=== PATIENT | male | born 1955 | race Caucasian/White ===

== ENCOUNTER 2023-08-29 14:03 | Outpatient (REF) | payer OTHER, SELFPAY | END 2023-08-29 14:04 | disposition home or self-care (01) | LOC: HO.BBR 14:03 | PROVIDERS: PCP Internal Medicine; Visit Provider Internal Medicine Gastroenterology | DX: Z13.89 Encounter for screening for other disorder (principal) ==

== ENCOUNTER 2023-10-30 15:23 | Outpatient (REF) | payer OTHER, SELFPAY | END 2023-10-30 15:24 | disposition home or self-care (01) | LOC: HO.BBR 15:23 | PROVIDERS: PCP Internal Medicine; Visit Provider Internal Medicine Gastroenterology | DX: Z13.89 Encounter for screening for other disorder (principal) ==

== ENCOUNTER 2023-12-25 15:21 | Outpatient (REF) | payer OTHER, SELFPAY | END 2023-12-25 15:22 | disposition home or self-care (01) | LOC: HO.BBR 15:21 | PROVIDERS: PCP Internal Medicine; Visit Provider Internal Medicine Gastroenterology | DX: Z13.89 Encounter for screening for other disorder (principal) ==

== ENCOUNTER 2024-02-19 15:36 | Outpatient (REF) | payer OTHER, SELFPAY | END 2024-02-19 15:37 | disposition home or self-care (01) | LOC: HO.BBR 15:36 | PROVIDERS: PCP Internal Medicine; Visit Provider Internal Medicine Gastroenterology | DX: Z13.89 Encounter for screening for other disorder (principal) ==

== ENCOUNTER 2024-04-15 13:13 | Outpatient (REF) | payer OTHER, SELFPAY | END 2024-04-15 13:14 | disposition home or self-care (01) | LOC: HO.BBR 13:13 | PROVIDERS: PCP Internal Medicine; Visit Provider Internal Medicine Gastroenterology | DX: Z13.89 Encounter for screening for other disorder (principal) ==

== ENCOUNTER 2024-07-02 15:50 | Outpatient (REF) | payer OTHER, SELFPAY | END 2024-07-02 15:51 | disposition home or self-care (01) | LOC: HO.BBR 15:50 | PROVIDERS: Visit Provider Internal Medicine | DX: Z13.89 Encounter for screening for other disorder (principal) ==

== ENCOUNTER 2024-08-27 15:47 | Outpatient (REF) | payer OTHER, SELFPAY | END 2024-08-27 15:48 | disposition home or self-care (01) | LOC: HO.BBR 15:47 | PROVIDERS: PCP Internal Medicine; Visit Provider Internal Medicine Gastroenterology | DX: Z13.89 Encounter for screening for other disorder (principal) ==

== ENCOUNTER 2024-10-26 15:39 | Outpatient (REF) | payer OTHER, SELFPAY | END 2024-10-26 15:40 | disposition home or self-care (01) | LOC: HO.BBR 15:39 | PROVIDERS: PCP Internal Medicine; Visit Provider Internal Medicine Gastroenterology | DX: Z13.89 Encounter for screening for other disorder (principal) ==

== ENCOUNTER 2024-12-21 15:33 | Outpatient (REF) | payer OTHER, SELFPAY ==
--- OUTSIDE RECORDS SUMMARY | 2024-12-21 18:24 | XMS_ITS | Clinical Summary ---
Author Organization [facility] Address [address] [place] [address] Care Team Providers Care Salesperson Handbags Name Role Phone García Martines MD Primary Care Provider [phone] Allergies No known active allergies Medications No known medications Active Problems Problem Noted Date Diagnosed Date IPMN (intraductal papillary mucinous neoplasm) 0 04/13/2019 Social History Tobacco Use Types Packs/Day Years Used Date Smoking Tobacco: Never Smokeless Tobacco: Never Alcohol Use Standard Drinks/Week Comments No 0 (1 standard drink = 0.6 oz pur e alcohol) Sex and Gender Information Value Date Recorded Sex Assigned at Not on file Gender Identity Not on file Sexual Orientation Not on file Last Filed Vital Signs Vital Sign Reading Time Taken Comments Blood Pressure 154/76 04/13/2019 10:06 AM EDT Pulse 78 04/13/2019 10:06 AM EDT Temperature - - Respiratory Rate - - Oxygen Saturation - - Inhaled Oxygen Concentration - - Weight 87.5 kg (193 lb) 04/13/2019 10:06 AM EDT Height 172.7 cm (5' 8 ) 04/13/2019 10:06 AM EDT Body Mass Index 29.35 04/13/2019 10:06 AM EDT Plan of Treatment Health Maintenance Due Date Last Done Comments Hepatitis C Screening 1955 COVID-19 Vaccine (#1) 01/20/1958 Pneumococcal Vaccine (1 of 2 - PCV) 1963 Depression Screening 1969 Preventative Health Evaluation 1975 DTap / Tdap / Td (1 - Tdap) 1976 Colon Cancer Screening (Colonoscopy) 2002 Shingrix-Zoster Vaccine (1 of 2) 2007 Fall Risk Assessment 2022 Influenza Vaccine (#1) 2024 RSV Adult > 60+ Yrs or Pregn ant (1 - 1-dose 75+ series) 2032 Hepatitis B Vaccines Aged Out No long er eligible based on patient's age to complete this topic RSV Ped < 20 months Aged Out No longe r eligible based on patient's age to complete this topic Care Teams Salesperson Handbags Relationship Specialty Start Date End Date García Martines MD [address] [facility] [address] [place] [address] PCP - General Block Sealer 04/08/19
== END 2024-12-21 15:34 | disposition home or self-care (01) ==
LOC: HO.BBR 15:33
PROVIDERS: PCP Internal Medicine; Visit Provider Internal Medicine Gastroenterology
DX: Z13.89 Encounter for screening for other disorder (principal)

== ENCOUNTER 2025-02-15 15:21 | Outpatient (REF) | payer OTHER, SELFPAY ==
--- OUTSIDE RECORDS SUMMARY | 2025-02-15 18:07 | XMS_ITS | Clinical Summary ---
Author Organization [facility] Address [address] [place] [address] Care Team Providers Care Plastics Repairer Name Role Phone García Martines MD Primary Care Provider [phone] Allergies No known active allergies Medications No [...] age to complete this topic Care Teams Plastics Repairer Relationship Specialty Start Date End Date García Martines MD [address] [facility] [address] [place] [address] PCP - General Cruise Director 04/08/19
== END 2025-02-15 15:22 | disposition home or self-care (01) ==
LOC: HO.BBR 15:21
PROVIDERS: PCP Internal Medicine; Visit Provider Internal Medicine Gastroenterology
DX: Z13.89 Encounter for screening for other disorder (principal)

== ENCOUNTER 2025-04-12 15:18 | Outpatient (REF) | payer OTHER, SELFPAY ==
--- OUTSIDE RECORDS SUMMARY | 2025-04-12 16:53 | XMS_ITS | Clinical Summary ---
Author Organization [facility] Address [address] [place] [address] Care Team Providers Care Drum Plater Name Role Phone García Martines MD Primary Care Provider [phone] Allergies No known active allergies Medications No [...] 2007 Fall Risk Assessment 2022 Influenza Vaccine (Season Ended) 2025 RSV Adult > 60+ Yrs or Pregn ant (1 - 1-dose 75+ series) 2032 Hepatitis B Vaccines Aged Out No long er eligible based on patient's age to complete this topic RSV Ped < 20 months Aged Out No longe r eligible based on patient's age to complete this topic Care Teams Drum Plater Relationship Specialty Start Date End Date García Martines MD [address] [facility] [address] [place] [address] PCP - General Waterworks Supervisor 04/08/19
== END 2025-04-12 15:19 | disposition home or self-care (01) ==
LOC: HO.BBR 15:18
PROVIDERS: PCP Internal Medicine; Visit Provider Internal Medicine Gastroenterology
DX: Z13.89 Encounter for screening for other disorder (principal)

== ENCOUNTER 2025-06-07 15:25 | Outpatient (REF) | payer OTHER, SELFPAY ==
--- OUTSIDE RECORDS SUMMARY | 2025-06-07 15:58 | XMS_ITS | Encounter Summary ---
Author Organization [facility] Address [address] [place] [address] Phone Care Team Providers Care Osteopathic Medicine Teacher Name Role Phone García Martines MD Primary Care Provider [phone] García Martines MD Unavailable [phone] India Velasquez RN Unavailable [email or web address] Mariana Moffett RN Unavailable [phone] Linda Aguero RN Unavailable Nely Avila MD Unavailable [phone] Reason for Referral * MRI/CAT Scan - New Request Specialty Diagnoses / Procedures Referred By Contac t Referred To Contact Radiology Diagnoses Familial hemochromatosis Hepatic cirrhosis, unspecified hepatic cirrhosis type, unspecified whether ascites present IPMN (intraductal papillary mucinous neoplasm) Procedures MRI Cholangiopancreatography (MRCP) García Roque MD [address] [place] [address] Phone: tel: fax: mailto:[email or web address] Referral ID Status Reason Start Date Expiration Date V isits Requested Visits Authorized [id number] New Request 05/12/2025 1 1 Encounter Details Date Type Department Care Team (Latest Contact Info) Description 05/12/2025 Transcribe Orders Virtual Department [address] [place] [address] García Roque MD [address] [address] [email or web address] Familial hemochromatosis (Primary Dx); Hepatic cirrhosis, unspecified hepatic cirrhosis type, unspecified whether ascites present; IPMN (intraductal papillary mucinous neoplasm) Social History Tobacco Use Types Packs/Day Years Used Date Smoking Tobacco: Never Smokeless Tobacco: Never Alcohol Use Standard Drinks/Week Comments Not Currently 0 (1 standard drink = 0.6 oz pur e alcohol) Education Answer Date Recorded Are you interested in more education? Not on aide e 02/15/2023 Are you concerned about learning? Not on file 02/15/2023 No 02/15/2023 No 02/15/2023 Digital Access Answer Date Recorded No 03/19/2023 No 03/19/2023 Reliable internet access at home? Not on file 03/19/2023 Device with a working camera? 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 file Not on f ile documented as of this encounter Plan of Treatment Upcoming Encounters Date Type Department Care Team (Late st Contact Info) Description 07/20/2025 8:10 AM EDT Blood Draw Laboratory Services, [facility] [address] [facility]nd [place] [address] Nely Avila MD [address] [place] [address] [email or web address] 07/20/2025 9:00 AM EDT Office [facility], [facility] [place] [address] [facility] [facility]th [place] [address] Jud Figueroa NP [address] [place] [address] [email or web address] 10/12/2025 8:10 AM EST Blood Draw Laboratory Services, [address], 2nd [place] [address] Nely Avila MD [address] [place] [address] [email or web address] 10/12/2025 9:00 AM EST Office Visit [facility], [facility] [address] [facility], [address]th [place] [address] Nely Avila MD [address] [place] [address] [email or web address] Scheduled Orders Name Type Priority Associated Diagnoses Order Schedule MRI Cholangiopancreatography (MRCP) Imaging Routine Familial hemochromatosis Hepatic cirrhosis, unspecified hepatic cirrhosis type, unspecified whether ascites present IPMN (intraductal papillary mucinous neoplasm) Expected: 05/12/2026, Expires: 11/12/2026 documented as of this encounter Visit Diagnoses Diagnosis Familial hemochromatosis- Primary Disorders of iron metabolism Hepatic cirrhosis, unspecified hepatic cirrhosis type, unspecified whether ascites present IPMN (intraductal papillary mucinous neoplasm) Neoplasm of unspecified nature of digestive system documented in this encounter Care Teams Osteopathic Medicine Teacher Relationship Specialty Start Date End Date García Martines MD [address] [place] [address] PCP - General Internal Medicine 04/13/19 García Martines MD [address] [place] [address] Referring Physician Internal Medicine 04/13/19 India Velasquez, RN [address] [place] [address] [email or web address] Primary Infusion Nurse 06/11/19 Mariana Moffett RN [address] [place] [address] [email or web address] Associate Infusion Nurse 09/04/19 Linda Aguero RN [address] [place] [address] [email or web address] Associate Infusion Nurse 09/04/19 Nely Avila MD [address] [place] [address] [email or web address] Medical Oncology 09/24/23 documented as of this encounter Additional Source Comments The information contained in this document represents components of the legal health record. It is not the complete legal health record.[facility]
--- OUTSIDE RECORDS SUMMARY | 2025-06-07 15:58 | XMS_ITS | Clinical Summary ---
Author Organization [facility] Address [address] [place] [address] Care Team Providers Care Duplicating Machine Mechanic Name Role Phone García Martines MD Primary Care Provider [phone] Allergies No known active allergies Medications No [...] Fall Risk Assessment 2022 Influenza Vaccine (#1) 2025 RSV Adult > 60+ Yrs or Pregn ant (1 - 1-dose 75+ series) 2032 Hepatitis B Vaccines Aged Out No long er eligible based on patient's age to complete this topic RSV Ped < 20 months Aged Out No longe r eligible based on patient's age to complete this topic Care Teams Duplicating Machine Mechanic Relationship Specialty Start Date End Date García Martines MD [address] [facility] [address] [place] [address] PCP - General Cotton Expert 04/08/19
== END 2025-06-07 15:26 | disposition home or self-care (01) ==
LOC: HO.BBR 15:25
PROVIDERS: PCP Internal Medicine; Visit Provider Internal Medicine Gastroenterology
DX: Z13.89 Encounter for screening for other disorder (principal)

== ENCOUNTER 2025-08-03 15:05 | Outpatient (REF) | payer OTHER, SELFPAY ==
--- OUTSIDE RECORDS SUMMARY | 2025-08-03 18:00 | XMS_ITS | Encounter Summary ---
Author Organization [facility] Address [address] [place] [address] Phone Care Team Providers Care Disaster Or Damage Control Specialist Name Role Phone García Martines MD Primary Care Provider [phone] García Martines MD Unavailable [phone] India Velasquez RN Unavailable [email or web address] Mariana Moffett RN Unavailable [phone] Linda Aguero RN Unavailable Nely Avila MD Unavailable [phone] Reason for Referral * MRI/CAT Scan - New Request Specialty Diagnoses / Procedures Referred By Contac t Referred To Contact Radiology Diagnoses Familial hemochromatosis Hepatic cirrhosis, unspecified hepatic cirrhosis type, unspecified whether ascites present IPMN (intraductal papillary mucinous neoplasm) Procedures MRI Cholangiopancreatography (MRCP) García Roque MD [address] [place] [address] Phone: tel: fax: mailto:[email or web address] Referral ID Status Reason Start Date Expiration Date V isits Requested Visits Authorized [id number] New Request 05/12/2025 1 1 Encounter Details Date Type Department Care Team (Latest Contact Info) Description 05/12/2025 Transcribe Orders Virtual Department [address] [place] [address] García Roque MD [address] [address] 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 10/12/2025 8:10 AM EST Blood Draw Laboratory Services, [facility] [address], [address]nd [place] [address] Nely Avila MD [address] [place] [address] [place] [address] [email or web address] 10/12/2025 9:00 AM EST Office Visit [facility], [facility] [address], 11th [place] [address] Nely Avila MD [address] [facility] [address] [place] [address] [email or web address] 01/04/2026 8:10 AM EDT Blood Draw Laboratory Services, [facility] [address], [address] [place], [place] Nely Avila MD [address] [facility] [address] [place] [address] [email or web address] 01/04/2026 9:00 AM EDT Office Visit [facility], [facility] [address], [address]th [place] [address] Jud Figueroa NP [address] [facility]. [address] [place] [address] [email or web address] Scheduled Orders Name Type Priority Associated Diagnoses [...] system documented in this encounter Care Teams Disaster Or Damage Control Specialist Relationship Specialty Start Date End Date García Martines MD [address] [place] [address] PCP - General Internal Medicine 04/13/19 García Martines MD [address] [place] [address] Referring Physician Internal Medicine 04/13/19 India Velasquez RN [address] [place] [address] [email or web address] Primary Infusion Nurse 06/11/19 Mariana Moffett RN [address] [place] [address] [email or web address] Associate Infusion Nurse 09/04/19 Linda Aguero RN [address] [place] [address] [email or web address] Associate Infusion Nurse 09/04/19 Nely Avila MD [address] [place] [address] [email or web address] Medical Oncology 09/24/23 documented as of this encounter Additional Source Comments The information contained in this document represents components of the legal health record. It is not the complete legal health record.[facility]
--- OUTSIDE RECORDS SUMMARY | 2025-08-03 18:00 | XMS_ITS | Clinical Summary ---
Author Organization [facility] Address [address] [facility] [address] [place] [address] Phone Care Team Providers Care Cold Mill Supervisor Name Role Phone García Martines MD Primary Care Provider [phone] García Martines MD Unavailable [phone] India Velasquez RN Unavailable [email or web address] Mariana Moffett RN Unavailable [phone] Linda Aguero RN Unavailable Nely Avila MD Unavailable [phone] Allergies No known active allergies Medications No known medications Active Problems Problem Noted Date Diagnosed Date Hemochromatosis 11/18/2019 Overview (11/18/2019): plebotomy done every 3 bill Prostate cancer 06/11/2019 Cancer Staging:Clinical stage from 07/04/2020:Stage IIIC(cT2c, cN0, cM0, PSA: 13.1, Grade Group: 5, 07/04/20, David: 4, +: 5) - Unsigned Pathologic stage from 07/04/2020: ypT3a, pN0, cM0, 07/04/20 - Unsigned Meniere's disease Overview (11/18/2019): 5-6 episodes 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 Viral hepatitis C Overview (11/18/2019): cured- treated with Harvoni Elevated PSA Encounters Date Type Department Care Team Description 07/21/2025 9:00 AM EDT Office Visit [facility], [facility] [address] [facility], 11th [place] [address] Alfonzo Jiménez CNP Loss of taste (Primary Dx); Prostate cancer 07/15/2025 Orders Only [facility], [facility] [address] [facility], 11th [place] [address] Nely Avila MD Prostate cancer (Primary Dx) 05/12/2025 Transcribe Orders Virtual Department [address] [place] [address] García Roque MD Familial hemochromatosis (Primary Dx); Hepatic cirrhosis, unspecified hepatic cirrhosis type, unspecified whether ascites present; IPMN (intraductal papillary mucinous neoplasm) from Last 3 Months Family History Medical History Relation Comments Prostate cancer Father Breast cancer Mother Colon cancer Mother Relation Status Comments Father Mother Social History Tobacco Use Types Packs/Day Years [...] 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 Vital Signs Vital Sign Reading Time Taken Comments Blood Pressure 160/79 07/21/2025 8:29 AM EDT Pulse 70 07/21/2025 8:29 AM EDT Temperature 36.7 C (98 F) 07/21/2025 8:27 AM EDT Respiratory Rate 18 07/21/2025 8:27 AM EDT Oxygen Saturation 99% 07/21/2025 8:29 AM EDT Inhaled Oxygen Concentration - - Weight 97.1 kg (214 lb 1.1 oz) 07/21/2025 8:27 A M EDT Height 170 cm (5' 6.93 ) 04/27/2025 9:55 AM EDT Body Mass Index 33.6 04/27/2025 9:55 AM EDT Plan of Treatment Upcoming Encounters Date Type Department Care Team (Late st Contact Info) Description 08/25/2025 2:15 PM EST Office Visit [facility] [address] [place] [address] Unknown, Unknown, García Wheeler MD [address] [place] [address] [email or web address] 10/12/2025 8:10 AM EST Blood Draw Laboratory Services, [address], 2nd [place] [address] Nely Avila MD [address] [place] [address] [email or web address] 10/12/2025 9:00 AM EST Office Visit [facility], [address], [address]th [place] [address] Nely Avila MD [address] [place] [address] [email or web address] 01/04/2026 8:10 AM EDT Blood Draw Laboratory Services, [address], 2nd [place] [address] Nely Avila MD [address] [address] [address] [place] [address] [email or web address] 01/04/2026 9:00 AM EDT [facility], [facility] [address] [facility], 11th [place] [address] Jud Figueroa, JUNI [address] [facility] [place] [address] [email or web address] Health Maintenance Due Date Last Done Comments Adult Td,Tdap Booster 1955 DEPRESSION SCREENING 1969 HEPATITIS A VACCINES (1 of 2 - Risk 2-dose series) 1976 PNEUMOCOCCAL VACCINES (50+ years) (1 of 2 - PCV) 1976 COLOGUARD 2002 COLONOSCOPY 2002 COLORECTAL CANCER SCREENING 2002 FIT TEST 2002 FOBT 2002 SIGMOIDOSCOPY 2002 VIRTUAL COLONOSCOPY 2002 RSV VACCINE (1 - Risk 50-74 years 1-dose series) 2007 INFLUENZA VACCINE (#1) 2025 COVID-19 VACCINE ( season) 2025 11/02/2021, 05/03/2021, 03/07/2021 SCREENING FOR DIABETES 01/27/2028 01/26/2025 LIPID PANEL 06/04/2029 06/04/2024, 02/18, 12/17/2023, Additional history exists ZOSTER VACCINES Completed 08/03/2023, 05/27/2023 SMOKING STATUS SCREENING (Once After 26 Yrs) Completed 04/27/2025 HIB VACCINES Aged Out No longer eligi ble based on patient's age to complete this topic MENINGOCOCCAL VACCINES (ACWY) Aged Out No longer eligible based on patient's age to complete this topic MENINGOCOCCAL VACCINES (B) Aged Out N o longer eligible based on patient's age to complete this topic Medical Devices Not on file Procedures Procedure Name Priority Date/Time Associated Diagnosis Comments LAB ADD ON Routine 07/21/2025 9:33 AM EDT Loss of taste X-LABEL/STUDY Routine 07/21/2025 8:20 AM EDT Prostate cancer TESTOSTERONE, TOTAL Routine 07/21/2025 8 :20 AM EDT Prostate cancer PSA DIAGNOSTIC (MONITORING) Routine 07/21/2025 8:20 AM EDT Prostate cancer LIPID PANEL Routine 06/04/2024 8:14 AM EDT Prostate cancer from Last 3 Months or Most Recently Relevant to Health Maintenance Results * Lab Add On: Zinc level (07/21/2025 9:33 AM EDT) TEST REQUESTED ZINC LEVEL [facility] Comments (Chemistry) UNABLE TO ADD TEST TO AN EXISTING SPECIMEN [facility] Comment:NO [place] TUBE FOR NIYAH T Blood 07/21/2025 9:33 AM EDT 07/21/2025 9:40 AM EDT us Alfonzo Jiménez CNP LAB BLOOD ORDERABLES F inal Result [facility] [address] [place] [address] * X-Label/study (07/21/2025 8:20 AM EDT) EXTRA TUBES NEEDED FOR RESEARCH STUDY [facility] Resulting Agency [facility] Blood 07/21/2025 8:20 AM EDT 07/21/2025 8:26 AM EDT us Nely Avila MD LAB BLOOD ORDERABLES Final Result Performing Organization Address City/[facility]/ZIP Co de Phone Number [facility] [address] [place] [address] * PSA diagnostic (monitoring) (07/21/2025 8:20 AM EDT) PSA Monitoring <0.02 0.00 - 4.00 ng/mL [facility] Blood 07/21/2025 8:20 AM EDT 07/21/2025 8:28 AM EDT Nely Avila MD LAB BLOOD ORDERABLES Final Result Performing Organization Address City/[facility] Co de Phone Number [facility] [address] [place] [address] * Testosterone, total (07/21/2025 8:20 AM EDT) Pathologist [facility] TESTOSTERONE 458 193 - 740 ng/dL [facility] Blood 07/21/2025 8:20 AM EDT 07/21/2025 8:28 AM EDT Nely Avila MD LAB BLOOD ORDERABLES Final Result Performing Organization Address [facility] Co de Phone Number [facility] [address] [place] [address] * (ABNORMAL) Lipid panel (06/04/2024 8:14 AM EDT) CHOLESTEROL 191 <200 mg/dL [facility] LIC# [id number] TRIGLYCERIDES 85 35 - 150 mg/dL [facility] LIC# [id number] HDL 38(L) 40 - 80 mg/dL [facility] LIC# [id number] CALCULATED LDL 136(H) 50 - 129 mg/dL [facility] LIC# [id number] VLDL 17 <31 mg/dL [facility] LIC# [id number] CARDIAC RISK RATIO 5.0 0.0 - 5.0 D [facility] LIC# [id number] Blood 06/04/2024 8:14 AM EDT 06/04/2024 8:24 AM EDT Nely Avila MD LAB BLOOD ORDERABLES Final Result [facility] LIC# [id number] [address] [place] [address] from Last 3 Months or Most Recently Relevant to Health Maintenance Insurance [facility] HMO Advance Directives For more information, please contact: [phone] (9AM - 5PM [facility], Saturday-Saturday) Documents on File Type Date Recorded Patient Talent Consultant Expl anation Healthcare Proxy 12/18/2019 12:00 PM * Full Code (Presumed) (Latest Code Status on File) Date Activated Date Inactivated Comments 12/10/2019 1:52 PM 12/11/2019 2:32 PM Care Teams Cold Mill Supervisor Relationship Specialty Start Date End Date García Martines MD [address] [place] [address] PCP - General Internal Medicine 04/13/19 García Martines MD [address] [place] [address] Referring Physician Internal Medicine 04/13/19 India Velasquez RN [address] [place] [address] [email or web address] Primary Infusion Nurse 06/11/19 Mariana Moffett RN [address] [place] [address] [email or web address] Associate Infusion Nurse 09/04/19 Linda Aguero, RN [address] [facility] [address] [place] [address] [email or web address] Associate Infusion Nurse 09/04/19 Nely Avila MD [address] [place] [address] [email or web address] Medical Oncology 09/24/23 Additional Source Comments The information contained in this document represents components of the legal health record. It is not the complete legal health record.[facility]
--- OUTSIDE RECORDS SUMMARY | 2025-08-03 18:00 | XMS_ITS | Encounter Summary ---
Author Organization [facility] Address [address] [place] [address] Phone Care Team Providers Care Diversional Therapist'S Assistant Name Role Phone García Martines MD Primary Care Provider [phone] García Martines MD Unavailable [phone] India Velasquez RN Unavailable Jimena [email or web address] Марина Vázquez MD Unavailable [phone] Mariana Moffett RN Unavailable [phone] Linda Aguero RN Unavailable Nely Avila MD Unavailable Encounter Details Date Type Department Care Team (Late st Contact Info) Description 05/22/2019 Telephone [facility] Urology 45 [facility]2-3 [place] [address] Abdelrahman Mayo MD 45 [facility] 11-3 [place] [address] [email or web address] Social History Tobacco Use Types Packs/Day Years [...] 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 Not on f ile documented as of this encounter Plan of Treatment Upcoming Encounters Date Type Department Care Team (Late st Contact Info) Description 08/25/2025 2:15 PM EST Office Visit [facility] Gastroenterology Clinic 10 [place] [address] Unknown, Unknown, García Wheeler MD [address] [address] 10/12/2025 8:10 AM EST Blood Draw Laboratory Services, [address], 2nd [place] [address] Nely Avila MD [address] [place] [address] [address] [place] [address] [email or web address] 10/12/2025 9:00 AM EST Office Visit [facility]ourinary On[facility], [address], 11th [place] [address] Nely Avila MD [address] [place] [address] [address] [place] [address] [email or web address] 01/04/2026 8:10 AM EDT Blood Draw Laboratory Services, [address], 2nd [place] [address] Nely Avila MD [address] [place] [address] 12[address]30 [place] [address] [email or web address] 01/04/2026 9:00 AM EDT Office Visit [facility], [facility] [place] [address] [facility], 11th [place] [address] Jud Figueroa NP [address] [facility] ,12th [address] [place] [address] Lisa@[facility] documented as of this encounter Visit Diagnoses Not on filedocumented in this encounter Care Teams Diversional Therapist'S Assistant Relationship Specialty Start Date End Date García Martines MD [address] [place] [address] PCP - General Internal Medicine 04/13/19 García Martines MD [address] [place] [address] Referring Physician Internal Medicine 04/13/19 India Velasquez RN [address] [place] [address] Angela@[email or web address] Primary Infusion Nurse 06/11/19 Марина Vázquez MD [address] [place] [address] Forrest@[email or web address] Primary Oncologist Medical Oncology 09/04/19 09/23/23 Mariana Moffett RN [address] [place] [address] RENÉ@[facility] Associate Infusion Nurse 09/04/19 Linda Aguero RN [address] [place] [address] [email or web address] Associate Infusion Nurse 09/04/19 Nely Avila MD [address] [place] [address] [email or web address] Medical Oncology 09/24/23 documented as of this encounter Additional Source Comments The information contained in this document represents components of the legal health record. It is not the complete legal health record.[facility]
--- OUTSIDE RECORDS SUMMARY | 2025-08-03 18:00 | XMS_ITS ---
Author Organization [facility] Address [address] [address] Phone Care Team Providers Care Locomotive Operator Name Role Phone García Martines MD Primary Care Provider [phone] García Martines MD Unavailable [phone] India Velasquez RN Unavailable Jimena [email or web address] Mariana Moffett RN Unavailable [phone] Linda Aguero RN Unavailable Nely Avila MD Unavailable [phone] Active Problems Problem Noted Date Diagnosed Date Hemochromatosis 11/18/2019 Overview (11/18/2019): plebotomy done every 3 bill Prostate cancer 06/11/2019 Cancer Staging:Clinical stage from 07/04/2020:Stage IIIC(cT2c, cN0, cM0, PSA: 13.1, Grade Group: 5, 07/04/20, [place]: 4, +: 5) - Unsigned Pathologic stage from 07/04/2020: ypT3a, pN0, cM0, 07/04/20 - Unsigned Meniere's disease Overview (11/18/2019): 5-6 episodes 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 Viral hepatitis C Overview (11/18/2019): cured- treated with Harvoni Elevated PSA Current Treatment and Therapy Plans 19-140 BLD* Plan Start Date:06/12/2019 Plan Provider:Марина Vázquez MD Linked Problems Prostate cancer Treatment Medications Current Day (Day 1 , Cycle 12 - Planned for 05/12/2020) ID-apalutamide <[id number] > or placebo (19-140) ID-apalutamide <[id number]> or placebo (19-140) 60 mg tabletID-apalutamide <[id number]> or placebo (140) tablet 240 mg Past Treatment and Therapy Plans Oncology Therapy Plan Plan Name Start Date Discontinue Date Treatment Medications Discontinue Reason Plan Provider LEUPROLIDE ACETATE 3 MONTH (LUPRON DEPOT 3 MONTH) 09/04/2019 05/18/2021 leuprolide (1 month) (LUPRON DEPOT 1 MONTH)leuprolide (LUPRON) a. Therapy Complete Concetta Pate, PAShonda
--- OUTSIDE RECORDS SUMMARY | 2025-08-03 18:00 | XMS_ITS | Encounter Summary ---
Author Organization [facility] Address [address] [address] Phone Care Team Providers Care System Designer Name Role Phone García Martines MD Primary Care Provider [phone] García Martines MD Unavailable [phone] India Velasquez RN Unavailable Jimena [email or web address] Марина Vázquez MD Unavailable [phone] Mariana Moffett RN Unavailable [phone] Linda Aguero RN Unavailable Nely Avila MD Unavailable [phone] Encounter Details Date Type Department Care Team (Late st Contact Info) Description 05/04/2019 Procedure Pass [facility] MR Imaging, [address] [place] [address] Social History Tobacco Use Types Packs/Day Years [...] 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 Not on f ile documented as of this encounter Plan of Treatment Upcoming Encounters Date Type Department Care Team (Late st Contact Info) Description 08/25/2025 2:15 PM EST Office Visit [facility] Gastroenterology Clinic 10 [place] [address] Unknown, Unknown, García Wheeler MD [address] [address] 10/12/2025 8:10 AM EST Blood Draw Laboratory Services, [address], 2nd [place] [address] Nely Avila MD [address] [place] [address] 1230 [address] [place] [address] Emeli@[email or web address] 10/12/2025 9:00 AM EST Office Visit [facility]ourinary Oncology, [address], [address] [place] [address] Nely Avila MD [address] [place] [address] 1230 [address] [place] [address] Emeli@[email or web address] 01/04/2026 8:10 AM EDT Blood Draw Laboratory Services, [address], [address] [place] [address] Nely Avila MD [address] [place] [address] 12[address] [place] [address] [email or web address] 01/04/2026 9:00 AM EDT Office Visit [facility], [address], [address] [place] [address] Jud Figueroa NP [address] [place] [address] ,[address]. [address] [place] [address] Lisa@[email or web address] documented as of this encounter Visit Diagnoses Not on filedocumented in this encounter Care Teams System Designer Relationship Specialty Start Date End Date García Martines MD [address] [place] [address] PCP - General Internal Medicine 04/13/19 García Martines MD [address] [place] [address] Referring Physician Internal Medicine 04/13/19 India Velasquez RN [address] [place] [address] Angela@[email or web address] Primary Infusion Nurse 06/11/19 Марина Vázquez MD [address] [place] [address] Forrest@[email or web address] Primary Oncologist Medical Oncology 09/04/19 09/23/23 Mariana Moffett RN [address] [place], [place] RENÉ@[facility] Associate Infusion Nurse 09/04/19 Linda Aguero RN [address] [place] [address] JAILENE@[email or web address] Associate Infusion Nurse 09/04/19 Nely Avila MD [address] [place] [address] Emeli@[email or web address] Medical Oncology 09/24/23 documented as of this encounter Additional Source Comments The information contained in this document represents components of the legal health record. It is not the complete legal health record.[facility]
--- OUTSIDE RECORDS SUMMARY | 2025-08-03 18:00 | XMS_ITS | Clinical Summary ---
Author Organization [facility] Address [address] [place] [address] Care Team Providers Care Overnight Stocker Name Role Phone García Martines MD Primary Care Provider [phone] Allergies No known active allergies Medications No [...] age to complete this topic Care Teams Overnight Stocker Relationship Specialty Start Date End Date García Martines MD 300 [facility] [address] [place] [address] PCP - General Skid Strapper 04/08/19
--- OUTSIDE RECORDS SUMMARY | 2025-08-03 18:00 | XMS_ITS | Encounter Summary ---
Author Organization [facility] Address [address] [place] [address] Phone Care Team Providers Care Gifts Officer Name Role Phone García Martines MD Primary Care Provider [phone] García Martines MD Unavailable [phone] India Velasquez RN Unavailable Jimena Mackey@[email or web address] Марина Vázquez MD Unavailable [phone] Mariana Moffett RN Unavailable [phone] Linda Aguero RN Unavailable Nely Avila MD Unavailable Encounter Details Date Type Department Care Team (Late st Contact Info) Description 05/22/2019 Telephone [facility] Urology 45 [facility]2-3 [place] [address] Abdelrahman Mayo MD 45 [facility] 11-[address] [place] [address] [email or web address] Social History Tobacco Use Types Packs/Day Years [...] 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 Gastroenterology Clinic 10 [place] [address] Unknown, Unknown, García Wheeler MD [address] [address] 10/12/2025 8:10 AM EST Blood Draw Laboratory Services, [address], 2nd [place] [address] Nely Avila MD [address] [place] [address] 12[address] [place] [address] Emeli@[email or web address] 10/12/2025 9:00 AM EST Office Visit [facility] for Genitourinary Oncology, [address], 11th [place] [address] Nely Avila MD [address] [place] [address] 12[address] [place] [address] [email or web address] 01/04/2026 8:10 AM EDT Blood Draw Laboratory Services, [address], 2nd [place] [address] Nely Avila MD [address] [place] [address] 12[address] [place] [address] [email or web address] 01/04/2026 9:00 AM EDT Office [facility], [facility] [place] [address] [facility], 11th [place] [address] Jud Figueroa NP [address] [facility] ,12th [address]. [address] [place] [address] Lisa@[facility] documented as of this encounter Visit Diagnoses Not on filedocumented in this encounter Care Teams Gifts Officer Relationship Specialty Start Date End Date García Martines MD [address] [place] [address] PCP - General Internal Medicine 04/13/19 García Maritnes MD [address] [place] [address] Referring Physician Internal Medicine 04/13/19 India Velasquez RN [address] [place] [address] Angela@[facility] Primary Infusion Nurse 06/11/19 Марина Vázquez MD [address] [place] [address] Forrest@[facility] Primary Oncologist Medical Oncology 09/04/19 09/23/23 Mariana Moffett RN [address] [place] [address] RENÉ@[facility] Associate Infusion Nurse 09/04/19 Linda Aguero RN [address] [place] [address] JAILENE@[email or web address] Associate Infusion Nurse 09/04/19 Nely Avila MD [address] [place] [address] [email or web address] Medical Oncology 09/24/23 documented as of this encounter Additional Source Comments The information contained in this document represents components of the legal health record. It is not the complete legal health record.[facility]
--- OUTSIDE RECORDS SUMMARY | 2025-08-03 18:00 | XMS_ITS | Encounter Summary ---
Author Organization [facility] Address 399 [facility] [address] [place] [address] Phone Care Team Providers Care Rotor Winder Name Role Phone García Martines MD Primary Care Provider [phone] García Martines MD Unavailable [phone] India Velasquez RN Unavailable Jimena Mackey@[email or web address] Марина Vázquez MD Unavailable [phone] Mariana Moffett RN Unavailable [phone] Linda Aguero RN Unavailable Nely Avila MD Unavailable [phone] Encounter Details Date Type Department Care Team (Late st Contact Info) Description 12/10/2019 Procedure Pass [facility] Periop [address] [place] [address] Social History Tobacco Use Types Packs/Day Years [...] 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 as of this encounter Plan of Treatment Upcoming Encounters Date Type Department Care Team (Late st Contact Info) Description 08/25/2025 2:15 PM EST Office Visit [facility] 10 [place] [address] Unknown, Unknown, García Wheeler MD [address] [address] [email or web address] 10/12/2025 8:10 AM EST Blood Draw Laboratory Services, [address], 2nd [place] [address] Nely Avila MD [address] [place] [address] 1230 [address] [place] [address] Emeli@[facility] 10/12/2025 9:00 AM EST Office Visit [facility] for Genitourinary Oncology, [address], [address] [place] [address] Nely Avila MD [address] [place] [address] 1230 [address] [place] [address] [email or web address] 01/04/2026 8:10 AM EDT Blood Draw Laboratory Services, [address], 2nd [place] [address] Nely Avila MD [address] [place] [address] 1230 [address] [place] [address] [email or web address] 01/04/2026 9:00 AM EDT Office Visit [facility], [address], 11th [place] [address] Jud Figueroa NP [address] [place] [address] ,[address]. [address] [place] [address] Lisa@[email or web address] documented as of this encounter Visit Diagnoses Not on filedocumented in this encounter Care Teams Rotor Winder Relationship Specialty Start Date End Date García Martines MD [address] [place] [address] PCP - General Internal Medicine 04/13/19 García Martines MD [address] [place] [address] Referring Physician Internal Medicine 04/13/19 India Velasquez RN [address] [place] [address] [email or web address]@[email or web address] Primary Infusion Nurse 06/11/19 Марина Vázquez MD [address] [place] [address] Forrest@[facility] Primary Oncologist Medical Oncology 09/04/19 09/23/23 Mariana Moffett RN [address] [place] [address] RENÉ@[facility] Associate Infusion Nurse 09/04/19 Linda Aguero RN [address] [place] [address] [email or web address]@[email or web address] Associate Infusion Nurse 09/04/19 Nely Avila MD 44 [facility] [place] [address] [place] [address] [email or web address]@[email or web address] Medical Oncology 09/24/23 documented as of this encounter Additional Source Comments The information contained in this document represents components of the legal health record. It is not the complete legal health record.[facility]
== END 2025-08-03 15:06 | disposition home or self-care (01) ==
LOC: HO.BBR 15:05
PROVIDERS: PCP Internal Medicine; Visit Provider Internal Medicine Gastroenterology
DX: Z13.89 Encounter for screening for other disorder (principal)